=== PATIENT | female | born 1985 | race Caucasian/White ===

== ENCOUNTER 2017-04-15 14:44 | Emergency (ER) | payer MEDICARE ==
[~2017-04-15] VITALS: Ht 156.2 cm; Wt 61.2 kg
[~2017-04-15 14:44] MED LIST: AMOX500C2 PO; CARB-88 PO; CITA20TA12 PO; CLON0.5T3 PO; DIAZ2TAB2 PO; HYDR-2890 PO; HYDR-3454 PO; HYDR118S10 PO; NAPR-243 PO; OMEP20CA12 PO; TEGRETOL; TOPAMAX PO; TRAM50TA2 PO; ZONI25CA16 PO; [UNRECOGNIZED DRUG - OTHER]
--- NOTE | 2017-04-15 17:24 | ED Lower Extremity ---
General Chief Complaint: Lower Extremity Stated Complaint: SHARP PAINS DOWN LEGS Nursing Triage Note: PT C/O LOWER BACK PAIN RADIATING DOWN BOTH LEGS. PT DENIES INJURY. Nursing Sepsis Screen: No Definite Risk Source: patient Exam Limitations: no limitations (MARÍA RIVAS MD) History of Present Illness Time seen by provider: 17:20 Initial Comments The patient is a 32-year-old white female who presents with a complaint of pain going down the posterior aspect of both legs. This is apparently been present to 1 or another for several years. She reports that her provider has deemed this to be restless legs and had put her on Neurontin. She did not find this to be particularly useful and continues to have at times disabling pain. She does not describe numbness or tingling or loss of muscle function Method of Injury: unknown (MARÍA RIVAS MD) Allergies and Home Medications Allergies Coded Allergies: NKANo Known Allergies (Verified Allergy, Unknown, 11/27/06) Home Medications Amoxicillin 500 Mg Capsule, 2 EACH PO TID, #60 Ref 0 Prescribed by: MEGAN BAKER on 12/15/141941 Carbamazepine 200 Mg Tab.er.12h, 600 MG PO BID, (Reported) TAKE 3 (200MG) TABS Citalopram Hydrobromide 20 Mg Tablet, 20 MG PO DAILY, (Reported) Clonazepam 0.5 Mg Tablet, 0.5 MG PO TID PRN PRN for ANXIETY, (Reported) PRN ANXIETY Cyclobenzaprine HCl 10 Mg Tablet, 10 MG PO Q8H, #30 Ref 0 Prescribed by: BRIAN TELLES on 04/15/171917 Hydrocodone/Ibuprofen 1 Each Tablet, 1 EACH PO Q6H PRN for LBP, #20 Ref 0 Prescribed by: BRIAN TELLES on 04/15/171918 Methylprednisolone 4 Mg Tab.ds.pk, 4 MG PO UD, #1 Ref 0 Prescribed by: BRIAN TELLES on 04/15/171918 Naproxen 500 Mg Tablet, 1 EACH PO TID PRN for PAIN, #20 Ref 0 FOR PAIN Prescribed by: MEGAN BAKER on 12/15/141941 Tramadol Hcl 50 Mg Tablet, 50 MG PO Q4H PRN for PAIN, #14 Ref 0 Prescribed by: MEGAN BAKER on 12/15/141941 [Anti-Seizure] , 50 MG BID, (Reported) Constitutional: see HPI EENTM: no symptoms reported Respiratory: no symptoms reported Cardiovascular: no symptoms reported Gastrointestinal: no symptoms reported Genitourinary: no symptoms reported Musculoskeletal: back pain, muscle pain Skin: no symptoms reported Psychiatric/Neurological: No Symptoms Reported (MARÍA RIVAS MD) Past Pvscvsf-Dqeydz-Ipdqrq Hx Patient Social History Alcohol Use: Denies Use Recreational Drug Use: No Smoking Status: Current Everyday Smoker Type Used: Cigarettes 2nd Hand Smoke Exposure: No Recent Foreign Travel: No Contact w/Someone Who Travel: No (N) Recent Infectious Disease Expo: No (MARÍA RIVAS MD) Immunizations Up To Date Date of Pneumonia Vaccine: Nov 13, 2012 (MARÍA RIVAS MD) Seasonal Allergies Seasonal Allergies: Yes (MARÍA RIVAS MD) Surgeries HX Surgeries: Yes (VAGUS NERVE STIMULATOR IN PLACE, ) Surgeries: Gallbladder, Tubal Ligation (MARÍA RIVAS MD) Respiratory Hx Respiratory Disorders: No (MARÍA RIVAS MD) Cardiovascular Hx Cardiac Disorders: Yes (RBBB) (MARÍA RIVAS MD) Neurological Hx Neurological Disorders: Yes Neurological Disorders: Seizure Disorder (MARÍA RIVAS MD) Genitourinary Hx Genitourinary Disorders: No (MARÍA RIVAS MD) Gastrointestinal Hx Gastrointestinal Disorders: No (MARÍA RIVAS MD) Musculoskeletal Hx Musculoskeletal Disorders: No (MARÍA RIVAS MD) Endocrine Hx Endocrine Disorders: No (MARÍA RIVAS MD) HEENT HX ENT Disorders: No (MARÍA RIVAS MD) Cancer Hx Cancer: No (MARÍA RIVAS MD) Psychosocial Hx Psychiatric Problems: No (MARÍA RIVAS MD) Integumentary HX Skin/Integumentary Disorder: No (MARÍA RIVAS MD) Blood Transfusions Hx Blood Disorders: No (MARÍA RIVAS MD) Family Medical History Significant Family History: No Pertinent Family Hx (MARÍA RIVAS MD) Physical Exam Vital Signs Vital Sign - Last 12Hours 04/15/17 15:40 Temp 97.1 Pulse 74 Resp 18 B/P (MAP) 135/74 Pulse Ox 98 O2 Delivery Room Air (BRIAN TELLES DO) Vital Signs Capillary Refill : Less Than 3 Seconds (MARAÍ RIVAS MD) General Appearance: mild distress HEENT: normal ENT inspection Neck: full range of motion Cardiovascular: normal peripheral pulses, regular rate, rhythm, no edema, no gallop, no JVD, no murmur Respiratory: chest non-tender, lungs clear, normal breath sounds, no respiratory distress, no accessory muscle use Gastrointestinal: normal bowel sounds, non tender, soft, no organomegaly, no pulsatile mass Back: normal inspection Comments Some discomfort is noted to palpation along the lumbar paravertebral muscles and SI joint. There is no pain to the sciatic notch (MARÍA RIVAS MD) Progress/Results/Core Measures Results/Orders Lab Results Laboratory Tests Test 04/15/17 18:14 Range/Units Erythrocyte Sedimentation Rate 17 0-20 MM/HR (BRIAN TELLES DO) My Orders Orders - BRIAN TELLES DO Dexamethasone Injection (Decadron Inject (04/15/17 19:15) Ketorolac Injection (Toradol Injection) (04/15/17 19:15) Dexamethasone Pf Injection (Decadron Pf (04/15/17 19:17) (BRIAN TELLES DO) Vital Signs/I&O Vital Sign - Last 12Hours 04/15/17 04/15/17 15:40 19:38 Temp 97.1 97.1 Pulse 74 74 Resp 18 18 B/P (MAP) 135/74 Pulse Ox 98 98 O2 Delivery Room Air (BRIAN TELLES DO) Blood Pressure Mean: 94 Progress Note : Progress Note Assumed care @ change of shift from Dr. Rivas c/ lab and x-rays pending. (BRIAN TELLES DO) Diagnostic Imaging Diagonstic Imaging: Xray Plain Films/CT/US/NM/MRI: other (lumbar spine) Reviewed: Reviewed/Discussed (BRIAN TELLES DO) Departure Impression Impression: Primary Impression: Acute radicular low back pain Disposition: 01 HOME, SELF-CARE Condition: Stable Departure-Patient Inst. Decision time for Depature: 19:14 (BRIAN TELLES DO) Referrals: CHAVA HEALY APRN (PCP) Primary Care Physician PREM WORLEY MD Patient Instructions: Low Back Pain in Adults Add. Discharge Instructions: All discharge instructions reviewed with patient and/or family. Voiced understanding. RECOMMEND CONTACTING [place] [id number] ON MONDAY AM, 04/17, TO ARRANGE FOLLOW UP WITH THEIR BACK SPECIALIST FOR FURTHER EVALUATION AND TREATMENT. Scripts Hydrocodone/Ibuprofen (Hydrocodone-Ibuprofen 10-200) 1 Each Tablet 1 EACH PO Q6H Y for LBP, #20 TAB 0 Refills Prov: BRIAN TELLES DO 04/15/17 Methylprednisolone (Medrol) 4 Mg Tab.ds.pk 4 MG PO UD, #1 PKG 0 Refills Prov: BRIAN TELLES DO 04/15/17 Cyclobenzaprine HCl (Cyclobenzaprine HCl) 10 Mg Tablet 10 MG PO Q8H for BACK SPASM, #30 TAB 0 Refills Prov: BRIAN TELLES DO 04/15/17 MARÍA RIVAS MD Apr 15, 2017 17:24 BRIAN TELLES DO Apr 15, 2017 19:18
--- NOTE | 2017-04-15 18:07 | Diagnostic Imaging Report ---
INDICATION: Pain radiating down both legs. EXAMINATION: Three views of the lumbar spine were obtained. FINDINGS: Good alignment of the vertebral bodies. Body heights and disc spaces are well maintained. Facets are in good alignment. Mild degenerative facet disease is noted at L5-S1 with no evidence of pars defect. SI joints show mild sclerosis along the superior margins, bilaterally. Pedicles are intact. 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 Dictated by: Dictated on workstation # [id number]
[2017-04-15] MEDS ORDERED: DEXAMETHASONE PF 10 MG/ML (DECADRON) VIAL ONE (19:17)
[2017-04-15] MEDS ORDERED: CYCL10TA9 PO (19:18)
[2017-04-15] MEDS ORDERED: HYDR-3447 PO (19:19)
[2017-04-15] MEDS ORDERED: METH4TAB PO (19:19)
[2017-04-15] MEDS: DEXAMETHASONE 4 MG/ML SDV (DECADRON) IM ONE ×2 (19:22→19:24)
[2017-04-15] MEDS: KETOROLAC 60 MG/2 ML VIAL IM ONE ×2 (19:22→19:24)
[2017-04-15 19:38] VITALS: BP 135/74
== END 2017-04-15 19:38 | disposition home or self-care (01) ==
LOC: EDUNIT# 14:44 → ER 14:46
DX: M54.5 Low back pain (principal); G40.909 Epilepsy, unspecified, not intractable, without status epilepticus; F17.210 Nicotine dependence, cigarettes, uncomplicated
CPT/HCPCS: 36415; 72100; 85652; 96372; 99283

== ENCOUNTER 2019-11-25 20:45 | Outpatient (CLI) | payer MEDICARE ==
[~2019-11-25 20:45] MED LIST changes: +CYCL10TA9 PO; +HYDR-3447 PO; +METH4TAB PO
== END 2019-11-26 06:11 | disposition home or self-care (01) ==
LOC: SLEEP 20:45
PROVIDERS: ATTEND Registered Nurse
DX: G47.61 Periodic limb movement disorder (principal); G47.31 Primary central sleep apnea; G40.909 Epilepsy, unspecified, not intractable, without status epilepticus; F51.04 Psychophysiologic insomnia; F33.0 Major depressive disorder, recurrent, mild; G47.00 Insomnia, unspecified; Z79.899 Other long term (current) drug therapy; Z90.49 Acquired absence of other specified parts of digestive tract; Z98.51 Tubal ligation status
CPT/HCPCS: 95810